=== PATIENT | male | born 2000 | race Caucasian/White ===

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

== ENCOUNTER 2019-01-25 12:12 | Emergency (ER) | payer OTHER ==
[~2019-01-25] VITALS: Ht 172.7 cm; Wt 81.8 kg
[2019-01-25] MEDS ORDERED: IBUP200C5 PO (12:25)
[2019-01-25] MEDS ORDERED: D-ME237L35 PO (12:25)
[2019-01-25] MEDS ORDERED: ACETAMINOPHEN 325 MG TABLET PO ONE (14:15)
[2019-01-25] MEDS ORDERED: DEXAMETHASONE SOD PHOS 4 MG/ML 5 ML VIAL IM ONE (14:30)
[2019-01-25 16:15] VITALS: BP 138/73
== END 2019-01-25 16:22 | disposition home or self-care (01) ==
LOC: EMS 12:12
DX: J02.9 Acute pharyngitis, unspecified (principal); R03.0 Elevated blood-pressure reading, without diagnosis of hypertension; G43.909 Migraine, unspecified, not intractable, without status migrainosus; F12.90 Cannabis use, unspecified, uncomplicated; Z87.891 Personal history of nicotine dependence
CPT/HCPCS: 87430; 96372; 99283; J1100

== ENCOUNTER 2025-05-03 21:17 | Emergency (ER) | payer SELFPAY ==
[~2025-05-03] VITALS: Ht 152.4 cm; Wt 90.0 kg
[~2025-05-03 21:17] MED LIST: D-ME237L35 PO; IBUP200C5 PO
[2025-05-03 21:53] VITALS: BP 159/99; PULSE 115; RESP 17; TEMP 97.8; O2SAT 97
== END 2025-05-03 23:28 | disposition left against medical advice (07) ==
LOC: EMS 21:18
DX: Z00.8 Encounter for other general examination (principal); Z53.21 Procedure and treatment not carried out due to patient leaving prior to being seen by health care provider